=== PATIENT | female | born 1945 | race Caucasian/White ===

== ENCOUNTER 2018-03-24 07:48 | Day surgery (SDC) | payer MEDICARE, BC ==
[~2018-03-24] VITALS: Ht 152.4 cm; Wt 41.2 kg
[~2018-03-24 07:48] MED LIST: ATOR80TA PO; BACITRACIN 50,000 UNIT ONE; BUPIVACAINE/PF 0.5% ONE; CITA20TA6 PO; EPINEPHRINE 1 MG/ML, 1ML ONE; LIDOCAINE 1%-EPI 1:100K, 30ML ONE; LIDOCAINE/PF 1%-EPI 1:200K, 30 ML ONE; METO25TA91 PO; THROMBIN 5,000 UNIT VIAL TP ONE; VALS1TAB7 PO; VANCOMYCIN 1,000 MG ONE
[2018-03-24] MEDS ORDERED: LACTATED RINGERS 1,000 ML IV SCH (08:17)
[2018-03-24 08:18] VITALS: BP 117/69
[2018-03-24] MEDS ORDERED: LIDOCAINE-MPF 1%, 2ML INFIL ONE (08:30)
[2018-03-24] MEDS ORDERED: METOPROLOL TARTRATE 25 MG TABLET PO ONE (08:30)
[2018-03-24] MEDS ORDERED: METOCLOPRAMIDE 5 MG/ML, 2ML ONE (10:37)
[2018-03-24] MEDS ORDERED: PROPOFOL 10 MG/ML, 50ML ONE (10:37)
[2018-03-24] MEDS ORDERED: PROPOFOL 10 MG/ML, 20ML ONE (10:37)
[2018-03-24] MEDS ORDERED: ONDANSETRON 2MG/ML, 2ML ONE (10:37)
[2018-03-24] MEDS ORDERED: CEFAZOLIN 1,000 MG ONE (10:37)
[2018-03-24] MEDS ORDERED: PHENYLEPHRINE 10 MG/ML ONE (10:37)
[2018-03-24] MEDS ORDERED: DEXAMETHASONE 4 MG/ML, 1ML ONE (10:37)
[2018-03-24] MEDS ORDERED: FENTANYL PF 100 MCG/2ML ONE ×2 (10:41)
[2018-03-24] MEDS ORDERED: MIDAZOLAM 1 MG/ML, 2ML ONE (10:41)
[2018-03-24] MEDS ORDERED: MEPERIDINE/PF 25MG/0.5ML IVPush PRN (12:30)
[2018-03-24] MEDS ORDERED: LABETALOL 5MG/ML, 20ML IV PRN (12:30)
[2018-03-24] MEDS ORDERED: OXYcodone 5 MG/5 ML ORAL.SOL UDC PO PRN (12:30)
[2018-03-24] MEDS ORDERED: ONDANSETRON 2MG/ML, 2ML IVPush PRN (12:30)
[2018-03-24] MEDS ORDERED: FENTANYL PF 100 MCG/2ML IV PRN (12:30)
[2018-03-24] MEDS ORDERED: HYDROmorphone 1 MG/ML, 1ML IV PRN (12:30)
[2018-03-24] MEDS ORDERED: MIDAZOLAM 1 MG/ML, 2ML IV PRN (12:30)
[2018-03-24] MEDS ORDERED: OXYcodone 5 MG/5 ML ORAL.SOL UDC ONE (12:47)
[2018-03-24] MEDS ORDERED: ALBUTEROL SULFATE 2.5 MG/3 ML NPPB PRN (16:00)
== END 2018-03-24 16:05 | disposition home or self-care (01) ==
LOC: OUT 07:48
PROVIDERS: ATTEND Orthopaedic Surgery Orthopaedic Surgery of the Spine
DX: M48.061 Spinal stenosis, lumbar region without neurogenic claudication (principal); M54.16 Radiculopathy, lumbar region; E78.00 Pure hypercholesterolemia, unspecified; F32.9 Major depressive disorder, single episode, unspecified; J44.9 Chronic obstructive pulmonary disease, unspecified; F17.200 Nicotine dependence, unspecified, uncomplicated; I10 Essential (primary) hypertension; Z79.899 Other long term (current) drug therapy; Z88.1 Allergy status to other antibiotic agents; Z98.890 Other specified postprocedural states
CPT/HCPCS: 63047; 72100; 94640; J0171; J0690; J1100; J2250; J2370; J2405; J2704; J2765; J3010; J3490; J7120; J3370